=== PATIENT | female | born 1990 | race Caucasian/White ===

== ENCOUNTER 2022-12-19 15:19 | Day surgery (SDC) | payer OTHER ==
[2022-12-19 15:48] VITALS: BMI 27.4
[2022-12-19] MEDS ORDERED: hydrALAZINE 20 MG/ML VIAL SLOW IVP PRN (16:24)
== END 2022-12-19 18:10 | disposition home or self-care (01) ==
LOC: CSHLD/OP 15:19
PROVIDERS: ATTEND Family Medicine
DX: O26.892 Other specified pregnancy related conditions, second trimester (principal); R10.31 Right lower quadrant pain; Z3A.26 26 weeks gestation of pregnancy; Z86.16 Personal history of COVID-19; W01.10XA Fall on same level from slipping, tripping and stumbling with subsequent striking against unspecified object, initial encounter
CPT/HCPCS: 99281

== ENCOUNTER 2023-03-11 12:46 | Inpatient (IN) | payer OTHER ==
[~2023-03-11 12:46] MED LIST: Bupivacaine 0.25% HCL 30 ML VIAL ONE
[2023-03-11] MEDS ORDERED: hydrALAZINE 20 MG/ML VIAL SLOW IVP PRN ×2 (13:48→15:21)
[2023-03-11 14:00] VITALS: BMI 29.2
[2023-03-11] MEDS ORDERED: Diphenoxylate HCl/Atropine Tablet PO PRN (15:21)
[2023-03-11] MEDS ORDERED: Ondansetron PF 4 MG/2 ML Vial IVP PRN ×2 (15:21→22:03)
[2023-03-11] MEDS ORDERED: Methylergonovine 0.2 MG/ML VIAL IM PRN (15:21)
[2023-03-11] MEDS ORDERED: Ibuprofen 800 MG TAB PO PRN (15:21)
[2023-03-11] MEDS ORDERED: Tranexamic Acid 1,000 MG/10 ML VIAL IVP PRN (15:21)
[2023-03-11] MEDS ORDERED: Misoprostol 200 MCG TAB PR PRN (15:21)
[2023-03-11] MEDS ORDERED: Promethazine HCl 25 MG/ML VIAL IM PRN ×2 (15:21→22:03)
[2023-03-11] MEDS ORDERED: Acetaminophen 500 MG TAB PO PRN (15:21)
[2023-03-11] MEDS ORDERED: Carboprost 250 MCG/ML AMP IM PRN (15:21)
[2023-03-11] MEDS ORDERED: Lidocaine 1% (PF) 30 ML VIAL SC PRN (15:21)
[2023-03-11] MEDS ORDERED: Lactated Ringer's 1,000 ML IV SCH (15:30)
[2023-03-11] MEDS ORDERED: NS w/ Oxytocin 30 units 500 ML IV SCH ×2 (15:30)
[2023-03-11] MEDS ORDERED: Misoprostol 100 MCG TAB VAG SCH (15:30)
[2023-03-11 16:57] LABS: Hemoglobin 10.8 g/dL (12.0-15.5); Mean Corpuscular HGB CONC 34.1 g/dL (32.0-36.0); Mean Corpuscular Hemoglobin 28.9 pg (27.0-33.0); Mean Corpuscular Volume 84.8 fl (81.6-98.3); Mean Platelet Volume 12.6 fl (7.4-10.4); Platelet Count 221 10x3/uL (150-450); Red Blood Cell (RBC) Count 3.74 10x6/uL (3.90-5.03); White Blood Cell (WBC) Count 7.9 10x3/uL (3.5-10.5)
[2023-03-11] MEDS: Misoprostol 100 MCG TAB VAG SCH (17:37)
[2023-03-11 17:49] LABS: HBSAg Index 0.14 S/CO (0-0.99); Hep B Surf Ag - L&D Non-Reactive S/CO (NonReactive)
[2023-03-11 17:51] LABS: Syphilis Antibody Nonreactive (Nonreactive); Syphilis Antibody Index 0.05 S/CO (<1.00 Non-Reactive)
[2023-03-11] MEDS ORDERED: Fentanyl 2 mcg/Bup 0.1% Cadd 100 ML ONE (21:47)
[2023-03-11] MEDS ORDERED: Lactated Ringer's 500 ML IV PRN (22:03)
[2023-03-11] MEDS ORDERED: Acetaminophen 325 MG TAB PO PRN (22:03)
[2023-03-11] MEDS ORDERED: diphenhydrAMINE 50 MG/ML VIAL IVP PRN (22:03)
[2023-03-11] MEDS ORDERED: ePHEDrine Sulfate 50 MG/10 ML VIAL SLOW IVP PRN (22:03)
[2023-03-11] MEDS ORDERED: Moisturizing Cream (Eucerin) 113 GM JAR TOP PRN (22:03)
[2023-03-11] MEDS ORDERED: Naloxone HCl 0.4 mg/ml Vial IVP PRN ×2 (22:03)
[2023-03-11] MEDS ORDERED: Communication Order-Pharmacy FS SCH (22:15)
[2023-03-11] MEDS ORDERED: Fentanyl 2 mcg/Bupivacaine 0.1% Cassette 100 ML EPIDURAL SCH (22:15)
[2023-03-12] MEDS ORDERED: Boostrix 0.5 ML (Tdap) VIAL (>/=7 yrs of age) IM ONE (07:26)
[2023-03-12] MEDS ORDERED: Methylergonovine 0.2 MG/ML VIAL IM PRN (07:26)
[2023-03-12] MEDS ORDERED: Benzocaine-Menthol 82.5 ML CAN TOP PRN (07:26)
[2023-03-12] MEDS ORDERED: NS w/ Oxytocin 30 units 500 ML IV SCH (07:26)
[2023-03-12] MEDS ORDERED: Bisacodyl 10 MG SUPP PR PRN (07:26)
[2023-03-12] MEDS ORDERED: Preparation H Ointment 28 GM TUBE PR PRN (07:26)
[2023-03-12] MEDS ORDERED: Milk Of Magnesia 30 ML UDCUP PO PRN (07:26)
[2023-03-12] MEDS ORDERED: hydrALAZINE 20 MG/ML VIAL SLOW IVP PRN (07:26)
[2023-03-12] MEDS ORDERED: Misoprostol 200 MCG TAB VAG PRN (07:26)
[2023-03-12] MEDS ORDERED: Lanolin Ointment 7 GM TUBE TOP PRN (07:26)
[2023-03-12] MEDS: Prenatal Vitamin 1 TAB PO SCH (09:38)
[2023-03-12] MEDS: Ibuprofen 800 MG TAB PO SCH ×3 (09:39→23:17)
[2023-03-12] MEDS: Docusate 100 MG CAP PO SCH ×2 (09:39→21:11)
[2023-03-12] MEDS: Ferrous Sulfate 325 MG TAB PO SCH ×2 (09:46→16:44)
[2023-03-13] MEDS: Ferrous Sulfate 325 MG TAB PO SCH (07:52)
[2023-03-13] MEDS: Ibuprofen 800 MG TAB PO SCH ×2 (08:30→16:23)
[2023-03-13] MEDS: Prenatal Vitamin 1 TAB PO SCH (08:31)
[2023-03-13] MEDS: Docusate 100 MG CAP PO SCH (08:31)
[2023-03-13 08:55] VITALS: BP 140/87; TEMP 98.2
[2023-03-13] MEDS: Misoprostol 100 MCG TAB VAG SCH (15:43)
== END 2023-03-13 17:30 | disposition home or self-care (01) | DRG 807 ==
LOC: CSHSDC/OP 12:46 → CSHLD 15:31 → CSHPP 03-12 09:56
PROVIDERS: ADMIT Student in an Organized Health Care Education/Training Program; ATTEND Student in an Organized Health Care Education/Training Program
PROC: 3E033VJ Introduction of Other Hormone into Peripheral Vein, Percutaneous Approach (ICD-10-PCS; 2023-03-11)
PROC: 10E0XZZ Delivery of Products of Conception, External Approach (ICD-10-PCS; principal; 2023-03-12)
PROC: 0HQ9XZZ Repair Perineum Skin, External Approach (ICD-10-PCS; 2023-03-12)
DX: O41.03X0 Oligohydramnios, third trimester, not applicable or unspecified (principal); Z37.0 Single live birth; Z3A.37 37 weeks gestation of pregnancy; K90.0 Celiac disease; O99.62 Diseases of the digestive system complicating childbirth; O99.02 Anemia complicating childbirth; D50.9 Iron deficiency anemia, unspecified; O35.8XX0 Maternal care for other (suspected) fetal abnormality and damage, not applicable or unspecified; O70.0 First degree perineal laceration during delivery; Z79.1 Long term (current) use of non-steroidal anti-inflammatories (NSAID); Z91.018 Allergy to other foods
CPT/HCPCS: 51702; 76815; 85027; 86780; 86850; 86900; 86901; 87340; 99285; S0020

== ENCOUNTER 2024-04-23 18:00 | Inpatient (IN) | payer OTHER ==
[2024-04-23] MEDS: Lactated Ringer's 1,000 ML IV SCH (21:07)
[2024-04-23 21:35] VITALS: BMI 29.2
[2024-04-23] MEDS ORDERED: Tranexamic Acid 1,000 MG/10 ML VIAL IVP PRN (21:38)
[2024-04-23] MEDS ORDERED: hydrALAZINE 20 MG/ML VIAL SLOW IVP PRN (21:38)
[2024-04-23] MEDS ORDERED: Acetaminophen 500 MG TAB PO PRN (21:38)
[2024-04-23] MEDS ORDERED: Ondansetron PF 4 MG/2 ML Vial IVP PRN (21:38)
[2024-04-23] MEDS ORDERED: Carboprost 250 MCG/ML AMP IM PRN (21:38)
[2024-04-23] MEDS ORDERED: Ibuprofen 800 MG TAB PO PRN (21:38)
[2024-04-23] MEDS ORDERED: Diphenoxylate HCl/Atropine Tablet PO PRN (21:38)
[2024-04-23] MEDS ORDERED: Lidocaine 1% (PF) 30 ML VIAL SC PRN (21:38)
[2024-04-23] MEDS ORDERED: Promethazine HCl 25 MG/ML VIAL IM PRN (21:38)
[2024-04-23] MEDS ORDERED: Methylergonovine 0.2 MG/ML VIAL IM PRN (21:38)
[2024-04-23] MEDS ORDERED: Misoprostol 200 MCG TAB PR PRN (21:38)
[2024-04-23] MEDS ORDERED: Oxytocin 30 units/NS 500 ML 500 ML IV SCH (21:45)
[2024-04-23 21:49] LABS: Hematocrit 29.7 % (34.9-44.5); Hemoglobin 10.1 g/dL (12.0-15.5); Mean Corpuscular Hemoglobin 28.1 pg (27.0-33.0); Mean Corpuscular Volume 82.5 fL (81.6-98.3); Mean Platelet Volume 11.7 fL (7.4-10.4); Platelet Count 245 10x3/uL (150-450); RBC Distribution Width 14.3 % (11.5-14.5); White Blood Cell (WBC) Count 8.5 10x3/uL (3.5-10.5)
[2024-04-23 22:26] LABS: HBsAg Index 0.14 S/CO (0-0.99); Hep B Surf Ag - L&D Non-Reactive S/CO (NonReactive); Syphilis Antibody Nonreactive (Nonreactive); Syphilis Antibody Index 0.09 S/CO (<1.00 Non-Reactive)
[2024-04-23] MEDS: Oxytocin 30 units/NS 500 ML 500 ML IV SCH (23:12)
[2024-04-24] MEDS ORDERED: Misoprostol 100 MCG TAB VAG SCH
[2024-04-24] MEDS ORDERED: Ondansetron PF 4 MG/2 ML Vial IVP PRN ×2 (04:14→13:16)
[2024-04-24] MEDS ORDERED: Acetaminophen 325 MG TAB PO PRN (04:14)
[2024-04-24] MEDS ORDERED: diphenhydrAMINE 50 MG/ML VIAL IVP PRN (04:14)
[2024-04-24] MEDS ORDERED: Naloxone HCl 0.4 mg/ml Vial IVP PRN ×2 (04:14)
[2024-04-24] MEDS ORDERED: ePHEDrine Sulfate 50 MG/10 ML VIAL SLOW IVP PRN (04:14)
[2024-04-24] MEDS ORDERED: Promethazine HCl 25 MG/ML VIAL IM PRN (04:14)
[2024-04-24] MEDS ORDERED: Moisturizing Cream (Eucerin) 113 GM JAR TOP PRN (04:14)
[2024-04-24] MEDS ORDERED: Lactated Ringer's 500 ML IV PRN (04:14)
[2024-04-24] MEDS ORDERED: fentaNYL 2 mcg/Ropivacaine 0.2% Epidural 100 ML CADD EPIDURAL SCH (04:15)
[2024-04-24] MEDS ORDERED: Communication Order-Pharmacy FS SCH (04:15)
[2024-04-24] MEDS ORDERED: Bupivacaine 0.25% HCL 30 ML VIAL ONE (08:00)
[2024-04-24] MEDS ORDERED: Bisacodyl 10 MG SUPP PR PRN (13:16)
[2024-04-24] MEDS ORDERED: Preparation H Ointment 28 GM TUBE PR PRN (13:16)
[2024-04-24] MEDS ORDERED: hydrALAZINE 20 MG/ML VIAL SLOW IVP PRN (13:16)
[2024-04-24] MEDS ORDERED: Milk Of Magnesia 30 ML UDCUP PO PRN (13:16)
[2024-04-24] MEDS ORDERED: diphenhydrAMINE 25 MG CAP PO PRN (13:16)
[2024-04-24] MEDS ORDERED: Lanolin Ointment 7 GM TUBE TOP PRN (13:16)
[2024-04-24] MEDS: fentaNYL/Ropivacaine Epidural 100 ML ONE (13:42)
[2024-04-24] MEDS: Hepatitis B Vaccine 10 MCG/0.5 ML SYR ONE (13:43)
[2024-04-24] MEDS: Phytonadione Neonatal 1 MG/0.5 ML AMP ONE (13:43)
[2024-04-24] MEDS: Erythromycin Base 0.5% Oint 1 GM TUBE ONE (13:43)
[2024-04-24] MEDS: Measles/Mumps/Rubella 10 MCG/0.5 ML VIAL SC ONE (13:45)
[2024-04-24] MEDS: Ibuprofen 800 MG TAB PO SCH (13:57)
[2024-04-24] MEDS: Benzocaine-Menthol 82.5 ML CAN TOP PRN (14:07)
[2024-04-24] MEDS: Ferrous Sulfate 325 MG TAB PO SCH (18:33)
[2024-04-24] MEDS: Docusate 100 MG CAP PO SCH (22:07)
[2024-04-25 07:45] VITALS: BP 106/67; TEMP 98
[2024-04-25] MEDS: Prenatal Vitamin 1 TAB PO SCH (08:06)
== END 2024-04-25 16:15 | disposition home or self-care (01) | DRG 807 ==
LOC: CSHLD 20:08 → CSHPP 04-24 12:45
PROVIDERS: ADMIT Student in an Organized Health Care Education/Training Program; ATTEND Student in an Organized Health Care Education/Training Program
PROC: 10E0XZZ Delivery of Products of Conception, External Approach (ICD-10-PCS; principal; 2024-04-24)
PROC: 0KQM0ZZ Repair Perineum Muscle, Open Approach (ICD-10-PCS; 2024-04-24)
PROC: 10907ZC Drainage of Amniotic Fluid, Therapeutic from Products of Conception, Via Natural or Artificial Opening (ICD-10-PCS; 2024-04-24)
DX: O99.892 Other specified diseases and conditions complicating childbirth (principal); Z37.0 Single live birth; Q52.4 Other congenital malformations of vagina; K90.0 Celiac disease; Z3A.39 39 weeks gestation of pregnancy; E55.9 Vitamin D deficiency, unspecified; O75.89 Other specified complications of labor and delivery; O99.62 Diseases of the digestive system complicating childbirth; O70.1 Second degree perineal laceration during delivery; O69.81X0 Labor and delivery complicated by cord around neck, without compression, not applicable or unspecified
CPT/HCPCS: 51702; 85027; 86780; 86850; 86900; 86901; 87340; J0665; J2590; J7120

== ENCOUNTER 2025-10-11 10:29 | Outpatient (CLI) | payer OTHER | END 2025-10-11 10:30 | disposition home or self-care (01) | LOC: CSHMRI 10:29 | PROVIDERS: ATTEND Family Medicine | DX: M54.42 Lumbago with sciatica, left side (principal); G89.29 Other chronic pain; M48.061 Spinal stenosis, lumbar region without neurogenic claudication; M48.07 Spinal stenosis, lumbosacral region | CPT/HCPCS: 72148 ==